=== PATIENT | female | born 1945 | race Caucasian/White ===

== ENCOUNTER 2024-04-03 14:12 | Emergency (ER) | payer MEDICARE ==
[2024-04-03] VITALS (7 sets, daily range): BP systolic 109–136; BP diastolic 54–68
[~2024-04-03] VITALS: Ht 157.5 cm; Wt 90.7 kg
[2024-04-03] MEDS ORDERED: KEFLEX500 MG PO (15:13)
== END 2024-04-03 15:46 | disposition home or self-care (01) ==
LOC: ED 14:12
DX: S90.01XA Contusion of right ankle, initial encounter (principal); L03.115 Cellulitis of right lower limb; W22.09XA Striking against other stationary object, initial encounter

== ENCOUNTER 2024-04-10 10:01 | Emergency (ER) | payer MEDICARE ==
[~2024-04-10] VITALS: Ht 157.5 cm; Wt 88.6 kg
[~2024-04-10 10:01] MED LIST: KEFLEX500 MG PO
[2024-04-10 10:12] VITALS: BP 117/62
[2024-04-10 10:15] VITALS: BP 123/54
[2024-04-10] MEDS ORDERED: LIDOcaine HCl 1% (Local Anesth.) 20 ML VIAL STI STA (10:23)
[2024-04-10] MEDS ORDERED: POVIDONE IODINE 0.5 OZ/BTL TOP ONE (10:25)
[2024-04-10 10:30] VITALS: BP 109/49
[2024-04-10 10:45] VITALS: BP 116/58
[2024-04-10] MEDS ORDERED: DOXYCYCLINE100 MG PO (10:57)
[2024-04-10 11:00] VITALS: BP 115/60
[2024-04-10 11:15] VITALS: BP 113/55
== END 2024-04-10 11:18 | disposition home or self-care (01) ==
LOC: ED 10:01
PROC: 0H9KXZZ Drainage of Right Lower Leg Skin, External Approach (ICD-10-PCS; principal; 2024-04-10)
DX: S80.11XA Contusion of right lower leg, initial encounter (principal); E11.9 Type 2 diabetes mellitus without complications; W22.8XXA Striking against or struck by other objects, initial encounter

== ENCOUNTER 2024-05-10 14:00 | Emergency (ER) | payer MEDICARE ==
[~2024-05-10] VITALS: Ht 157.5 cm; Wt 72.0 kg
[~2024-05-10 14:00] MED LIST changes: +DOXYCYCLINE100 MG PO
[2024-05-10 14:09] VITALS: BP 144/67
[2024-05-10 14:16] VITALS: BP 107/56
[2024-05-10 14:30] VITALS: BP 112/51
[2024-05-10 15:05] LABS: URINE BILIRUBIN - DIPSTICK Negative (NEGATIVE); URINE BLOOD DIPSTICK Large (NEGATIVE); URINE GLUCOSE - DIPSTICK Negative (NEGATIVE); URINE KETONE Negative (NEGATIVE); URINE NITRITE - DIPSTICK Negative (Negative); URINE PH 5.5 (4.5-8.0); URINE PROTEIN - DIPSTICK 30 mg/dL (NEG-TRACE); URINE SPECIFIC GRAVITY <=1.005; URINE UROBILINOGEN - DIPSTICK 0.2 E.U./dL (0.2)
[2024-05-10 15:12] LABS: URINE COLOR Yellow; URINE LEUK ESTERASE Large (NEGATIVE)
[2024-05-10] MEDS ORDERED: LIDOcaine HCl 1% (Local Anesth.) 20 ML VIAL IM STA (15:18)
[2024-05-10] MEDS ORDERED: cefTRIAXone SODIUM 1 GM/VIAL SDV IM ONE (15:20)
[2024-05-10 15:23] LABS: URINE BACTERIA MODERATE hpf; URINE TRANSITIONAL EPI. CELLS FEW hpf
[2024-05-10] MEDS ORDERED: DIFLUCAN150 MG PO (15:44)
[2024-05-10 15:46] VITALS: BP 112/51
[2024-05-12] MEDS ORDERED: MACROBID100 M1 PO (11:19)
== END 2024-05-10 15:52 | disposition home or self-care (01) ==
LOC: ED 14:00
PROVIDERS: Nurse Practitioner
DX: N39.0 Urinary tract infection, site not specified (principal); B96.20 Unspecified Escherichia coli [E. coli] as the cause of diseases classified elsewhere; B37.9 Candidiasis, unspecified; E11.9 Type 2 diabetes mellitus without complications
CPT/HCPCS: J0696